=== PATIENT | female | born 1995 | race Caucasian/White ===

== ENCOUNTER 2017-02-13 17:27 | Observation (INO) | payer OTHER ==
[~2017-02-13] VITALS: Ht 175.3 cm; Wt 82.7 kg
[~2017-02-13 17:27] MED LIST: HYDR-3240 PO; TAMS0.4C2 PO
[2017-02-13 17:39] VITALS: BP 126/72
[2017-02-13] MEDS ORDERED: PREN1TAB60 PO (17:49)
[2017-02-13] MEDS ORDERED: FERR324T5 PO (17:49)
[2017-02-13] MEDS ORDERED: TERBUTALINE 1 MG/ML, 1ML SQ ONE (18:30)
[2017-02-13] MEDS ORDERED: TERBUTALINE 1 MG/ML, 1ML ONE (18:30)
[2017-02-13] MEDS ORDERED: ONDANSETRON 2MG/ML, 2ML IVPush PRN (20:00)
[2017-02-16] MEDS ORDERED: NITR100C56 PO (16:35)
== END 2017-02-13 21:30 | disposition home or self-care (01) ==
LOC: LDOP 17:27 → LDIP 19:16
PROVIDERS: ADMIT Obstetrics & Gynecology; ATTEND Obstetrics & Gynecology
DX: O26.893 Other specified pregnancy related conditions, third trimester (principal); R10.9 Unspecified abdominal pain; Z3A.34 34 weeks gestation of pregnancy; Z87.891 Personal history of nicotine dependence
CPT/HCPCS: 59025; 81001; 87086; 96372; G0378; J3105

== ENCOUNTER 2017-03-09 12:40 | Outpatient (CLI) | payer BC, OTHER ==
[~2017-03-09] VITALS: Ht 175.3 cm; Wt 85.0 kg
[~2017-03-09 12:40] MED LIST changes: +FERR324T5 PO; +NITR100C56 PO; +PREN1TAB60 PO
[2017-03-09 14:03] VITALS: BP 119/77
== END 2017-03-09 14:30 | disposition home or self-care (01) ==
LOC: LDOP 12:40
PROVIDERS: ATTEND Obstetrics & Gynecology
DX: O26.893 Other specified pregnancy related conditions, third trimester (principal); R10.9 Unspecified abdominal pain; Z3A.38 38 weeks gestation of pregnancy
CPT/HCPCS: 59025; 99211; G0463

== ENCOUNTER 2017-03-17 05:59 | Inpatient (IN) | payer BC, OTHER ==
[~2017-03-17] VITALS: Ht 175.3 cm; Wt 86.0 kg
[2017-03-17] MEDS ORDERED: OXYTOCIN 30U/ 0.9% NaCL 500ML 500 ML IV PRN (06:03)
[2017-03-17] MEDS: D5%-LACTATED RINGERS 1,000 ML IV SCH ×2 (06:03→14:03)
[2017-03-17] MEDS ORDERED: OXYTOCIN 30U/ 0.9% NaCL 500ML 500 ML IV ONE (06:03)
[2017-03-17] MEDS ORDERED: OXYTOCIN 30U/ 0.9% NaCL 500ML 500 ML ONE (06:18)
[2017-03-17] MEDS ORDERED: NEWBORN KIT ONE (06:18)
[2017-03-17] MEDS ORDERED: ONDANSETRON 2MG/ML, 2ML IVPush PRN (06:30)
[2017-03-17] MEDS ORDERED: FENTANYL PF 100 MCG/2ML IV PRN (06:30)
[2017-03-17] MEDS ORDERED: FENTANYL PF 100 MCG/2ML IVPush PRN (06:30)
[2017-03-17] MEDS ORDERED: CALCIUM CARBONATE 500 MG TAB.CHEW PO PRN ×2 (06:30→16:30)
[2017-03-17 06:31] VITALS: BP 126/74
[2017-03-17] MEDS: LACTATED RINGERS 1,000 ML IV SCH ×2 (06:49→14:03)
[2017-03-17] MEDS ORDERED: LACTATED RINGERS 1,000 ML IV SCH (09:25)
[2017-03-17] MEDS ORDERED: FENTANYL/BUPIV./NS/PF 250 ML EPIDCONT SCH (09:25)
[2017-03-17] MEDS ORDERED: BUPIVACAINE/PF 0.25% ONE (09:29)
[2017-03-17] MEDS ORDERED: FENTANYL/BUPIV./NS/PF 250 ML EPIDCONT ONE (09:29)
[2017-03-17] MEDS ORDERED: LACTATED RINGERS 1,000 ML IVBOLUS PRN (09:30)
[2017-03-17] MEDS ORDERED: NALOXONE 0.4 MG/ML, 1ML IVPush PRN (09:30)
[2017-03-17] MEDS ORDERED: EPHEDRINE 50 MG/ML, 1ML IVPush PRN (09:30)
[2017-03-17] MEDS: OXYTOCIN 30U/ 0.9% NaCL 500ML 500 ML IV SCH (16:17)
[2017-03-17] MEDS ORDERED: ONDANSETRON 2MG/ML, 2ML IV PRN (16:30)
[2017-03-17] MEDS ORDERED: MAGNESIUM HYDROXIDE 8%, 30ML UDC PO PRN (16:30)
[2017-03-17] MEDS ORDERED: METHYLERGONOVINE 0.2 MG/ML IM PRN (16:30)
[2017-03-17] MEDS ORDERED: OXYcodone/APAP 5/325MG TABLET PO PRN ×2 (16:30)
[2017-03-17] MEDS ORDERED: GLYCERIN ADULT SUPP PR PRN (16:30)
[2017-03-17] MEDS ORDERED: ACETAMINOPHEN 325 MG TABLET PO PRN ×2 (16:30)
[2017-03-17] MEDS ORDERED: BISACODYL 10 MG SUPP PR PRN (16:30)
[2017-03-17] MEDS ORDERED: OXYTOCIN 10 UNITS/ML, 1ML IM PRN (16:30)
[2017-03-17] MEDS ORDERED: CARBOPROST TROMETHAMINE 250 MCG/ML, 1ML IM PRN (16:30)
[2017-03-17] MEDS ORDERED: MISOPROSTOL 200 MCG TABLET PR PRN (16:30)
[2017-03-17] MEDS ORDERED: METOCLOPRAMIDE 5 MG/ML, 2ML IV PRN (16:30)
[2017-03-17] MEDS ORDERED: DOCUSATE 100 MG CAPSULE PO PRN (16:30)
[2017-03-17] MEDS ORDERED: FERROUS SULFATE 325 MG TABLET PO SCH (17:00)
[2017-03-17 17:45] VITALS: BP 117/70
[2017-03-17 19:45] VITALS: BP 120/74
[2017-03-17] MEDS: IBUPROFEN 800 MG TABLET PO PRN (19:49)
[2017-03-17 23:02] VITALS: BP 122/65
[2017-03-18 00:30] LABS: DIFF TOTAL CELLS COUNTED 100 CELL DIFF
[2017-03-18 00:34] LABS: POLYCHROMASIA 1+; VERIFY COUNTS? YES
[2017-03-18 00:35] LABS: LARGE PLATELETS 1+; OVALOCYTES 1+
[2017-03-18] MEDS: OXYTOCIN 30U/ 0.9% NaCL 500ML 500 ML IV SCH (02:17)
[2017-03-18] MEDS: IBUPROFEN 800 MG TABLET PO PRN (04:42)
[2017-03-18 07:30] VITALS: BP 115/69
[2017-03-18] MEDS ORDERED: PRENATAL VIT/IRON/FA 1 EACH TABLET PO SCH (09:00)
[2017-03-18 12:00] VITALS: BP 112/78
[2017-03-18] MEDS ORDERED: IBUP800T PO (12:05)
[2017-03-18] MEDS ORDERED: OXYC-302 PO (12:05)
[2017-03-18] MEDS ORDERED: FERR325T23 PO (12:06)
[2017-03-18] MEDS ORDERED: DIPH,PERTUSS(ACELL),TET VAC/PF NC IM-VACC ONE (12:30)
== END 2017-03-18 12:55 | disposition home or self-care (01) | DRG 775 ==
LOC: LDIP 05:59 → 2NW 17:15
PROVIDERS: ADMIT Obstetrics & Gynecology; ATTEND Obstetrics & Gynecology
PROC: 10E0XZZ Delivery of Products of Conception, External Approach (ICD-10-PCS; principal; 2017-03-17)
PROC: 0HQ9XZZ Repair Perineum Skin, External Approach (ICD-10-PCS; 2017-03-17)
PROC: 10907ZC Drainage of Amniotic Fluid, Therapeutic from Products of Conception, Via Natural or Artificial Opening (ICD-10-PCS; 2017-03-17)
PROC: 3E033VJ Introduction of Other Hormone into Peripheral Vein, Percutaneous Approach (ICD-10-PCS; 2017-03-17)
PROC: 00HU33Z Insertion of Infusion Device into Spinal Canal, Percutaneous Approach (ICD-10-PCS; 2017-03-17)
PROC: 3E0R3CZ (ICD-10-PCS; 2017-03-17)
DX: O99.02 Anemia complicating childbirth (principal); Z37.0 Single live birth; D64.9 Anemia, unspecified; Z3A.39 39 weeks gestation of pregnancy; Z85.820 Personal history of malignant melanoma of skin; O70.0 First degree perineal laceration during delivery
CPT/HCPCS: 36415; 85025; 86850; 86900; J2590; J3010; J7120